=== PATIENT | female | born 1970 | race Two or more races ===

== ENCOUNTER 2016-11-14 16:29 | Emergency (ER) | payer OTHER ==
--- NOTE | 2016-11-14 16:38 | EDPHY ---
H & P Time Seen by Provider: 11/14/16 16:38 - Medical/Surgical History Hx Asthma: No Hx Chronic Respiratory Disease: No Hx Diabetes: No Hx Cardiac Disease: No Hx Renal Disease: No Hx Alcoholism: No Other PMH: pmh- hypoglycemia, hypothyroid, PID. psh- appy, hyster - Social History Smoking Status: Never smoked Constitutional: Initial Vital Signs Temperature (C) 37.2 C 11/14/16 16:36 Heart Rate 80 11/14/16 16:36 Respiratory Rate 20 11/14/16 16:36 O2 Sat (%) 99 11/14/16 16:36 Allergies/Adverse Reactions: Sulfa (Sulfonamide Antibiotics) Allergy (Verified 02/06/15 11:04) sulfamethoxazole [From Bactrim] Allergy (Verified 11/14/16 16:35) trimethoprim [From Bactrim] Allergy (Verified 11/14/16 16:35) Home Medications: Medication Instructions Recorded Abx For Sinus Infxn 02/06/15 Albuterol Inhaler Hfa 02/06/15 Cough Syrup 02/06/15 Flonase Nasal [place] 02/06/15 Levothyroxine 02/06/15 Spironolactone 02/06/15 Escitalopram Oxalate 11/14/16 Medical Decision Making ED Course/Re-evaluation: CHIEF COMPLAINT: Anxiety HISTORY OF PRESENT ILLNESS: The patient is a 46 year old female, brought in by EMS, presenting with anxiety attack. The patient was picking up her daughter from school and developed nausea, abdominal cramping, and felt like she was going to pass out. She started breathing into a small bag and began to have carpal spasms. The patient had an episode of diarrhea while in the ED. She states she feels much better now. REVIEW OF SYSTEMS: A 10 point review of systems was performed and is negative with the exception of the elements mentioned in the history of present illness. PHYSICAL EXAM: HR, BP, O2 Sat, RR. Temp noted General Appearance: Alert, well hydrated, appropriate, and non-toxic appearing. Head: Atraumatic without scalp tenderness or obvious injury Eyes: Pupils equal, round, reactive to light and accommodation, EOMI, no trauma , no injection. Ears: Clear bilaterally, no perforation, normal landmarks Nose: Atraumatic, no rhinorrhea, clear. Throat: There is no erythema or exudates, no lesions, normal tonsils, mucus membranes moist. Neck: Supple, 2+ carotid upstroke, nontender, no lymphadenopathy. Respiratory: No retractions, no distress, no wheezes, and no accessory muscle use. Lungs are clear to auscultation bilaterally. Cardiovascular: Regular rate and rhythm, no murmurs, rubs, or gallops. Bilateral carotid, radial, dorsalis pedis, and posterior tibial pulses intact. Good capillary refill all extremities. Gastrointestinal: Abdomen is soft, nontender, non-distended, no masses, no rebound, no guarding, no peritoneal signs. Musculoskeletal: Normal active ROM of all extremities, atraumatic. Neurological: Alert, appropriate, and interactive. The patient has normal DTRs and non-focal cranial nerves, motor, sensory, and cerebellar exam. Skin: No rashes, good turgor, no nodules on palpation. Past medical history: Denies Past surgical history: Denies Family history: Noncontributory Social history: . DIAGNOSTICS/PROCEDURES/CRITICAL CARE TIME: The 12 lead EKG was interpreted by myself. See hard copy and/or "tracemaster" electronic copy for interpretation: Sinus rhythm. DIFFERENTIAL DIAGNOSIS: The differential diagnosis for the patient's lightheadedness included but was not limited to anxiety, vasovagal syncope, arrhythmia, dehydration, cardiogenic causes, neurogenic causes, and blood loss. MEDICAL DECISION MAKING: The patient is a 46 year old female presenting here after an anxiety attack. The patient describes classic anxiety symptoms or lightheadedness, nausea, and carpal spasms. She felt like she was going to pass out. She had her daughter call 911. Patient states she feels much better now. I will check iSTAT and EKG. i-STAT is normal. EKG is sinus rhythm. - Data Points Laboratory Results: 11/14/16 17:11 POC Hgb 13.6 gm/dL (12.3-15.9) POC Hct 40 % (35.5-47.5) POC Sodium 140 mEq/L (134-144) POC Potassium 2.9 L mEq/L (3.3-5.0) POC Chloride 103 mEq/L (96-108) POC BUN 12 mg/dL (7-23) POC Creatinine 0.7 mg/dL (0.6-1.2) POC Glucose 106 H mg/dL (70-100) Point of Care Test Results: 11/14/16 17:11 POC Sodium 140 POC Potassium 2.9 L POC Chloride 103 POC BUN 12 POC Creatinine 0.7 POC Glucose 106 H Departure - Departure Disposition: Home, Routine, Self-Care Clinical Impression: Anxiety Condition: Good Instructions: Anxiety (ED) Additional Instructions: Followup with your primary care physician as needed. Drink plenty of fluids. Referrals: Patient,NotPresent [Unknown] - As per Instructions Report Scribed for: Christopher Trejo Report Scribed by: Lucia Shaver Date of Report: 11/14/16 Time of Report: 16:49
[2016-11-14 16:42] VITALS: PULSE 80
--- NOTE | 2016-11-14 17:19 | CPEKG ---
Heart Rate: 80 RR Interval: 750 P-R Interval: 128 QRSD Interval: 76 QT Interval: 360 QTC Interval: 416 P [place]: 51 QRS [place]: 24 T Wave [place]: 17 EKG Severity - BORDERLINE ECG - EKG Impression: SINUS RHYTHM EKG Impression: BORDERLINE T ABNORMALITIES, ANTERIOR LEADS Electronically Signed By: Christopher Trejo 14-Nov-2016 19:46:24
[2016-11-14 17:48] VITALS: BP 125/80; RESP 18; TEMP 98.4; O2SAT 96
== END 2016-11-14 17:48 | disposition home or self-care (01) ==
LOC: EDUNIT#
DX: F41.9 Anxiety disorder, unspecified (principal)
CPT/HCPCS: 82947-QW

== ENCOUNTER → 2017-09-29 | Outpatient (CLI) | payer SELFPAY | LOC: CIMAGING 07:32 | PROVIDERS: ATTEND Family Medicine Sports Medicine | DX: Z12.31 Encounter for screening mammogram for malignant neoplasm of breast (principal) | CPT/HCPCS: G0202 ==

== ENCOUNTER → 2018-12-21 | Outpatient (CLI) | payer OTHER | LOC: CIMAGING 14:46 | PROVIDERS: ATTEND Family Medicine Sports Medicine | DX: Z12.31 Encounter for screening mammogram for malignant neoplasm of breast (principal) ==

== ENCOUNTER → 2019-01-20 | Outpatient (CLI) | payer OTHER | LOC: FIMAGING 09:05 | PROVIDERS: ATTEND Family Medicine Sports Medicine | DX: N63.11 Unspecified lump in the right breast, upper outer quadrant (principal) ==

== ENCOUNTER 2019-04-12 16:16 | Emergency (ER) | payer OTHER | END 2019-04-12 18:55 | disposition home or self-care (01) | LOC: CED 16:16 ==